=== PATIENT | male | born 1950 | race Hispanic/Latino ===

== ENCOUNTER → 2017-08-31 | Outpatient (CLI) | payer OTHER ==
[~2017-08-31] MED LIST: IOHEXOL-350 75 ML VIAL IV ONE
== END | disposition home or self-care (01) ==
LOC: EEVIPCON 07:41 → RAH 07:41 → EDUNIT# 08:00
PROVIDERS: ATTEND Internal Medicine
DX: C61 Malignant neoplasm of prostate (principal); I70.90 Unspecified atherosclerosis; M47.895 Other spondylosis, thoracolumbar region
CPT/HCPCS: 74170; Q9967